=== PATIENT | female | born 1965 | race Caucasian/White ===

== ENCOUNTER 2018-06-10 06:17 | Day surgery (SDC) | payer OTHER ==
[~2018-06-10 06:17] MED LIST: CEFAZOLIN 2 GM/50 ML (PMX) 50 ML IVPB; SOD CHLORIDE 0.9% 1,000 ML IV
[2018-06-10] MEDS ORDERED: BUPIVACAINE 0.25% (MPF) 30 ML INJ (06:38)
[2018-06-10] MEDS ORDERED: FENTAnyl 50 MCG/ML VIAL (10:43)
[2018-06-10] MEDS ORDERED: ONDANSETRON 4 MG INJ (10:43)
[2018-06-10] MEDS ORDERED: MIDAZOLAM 1 MG/ML 2 ML INJ (10:43)
[2018-06-10] MEDS ORDERED: PROPOFOL 20 ML (10:43)
[2018-06-10] MEDS ORDERED: METOCLOPRAMIDE 10 MG INJ (10:43)
[2018-06-10] MEDS ORDERED: CEFAZOLIN 1 GM INJ (10:43)
[2018-06-10] MEDS ORDERED: OXYCODONE/ACETAMINOPHEN (5/325) TAB PO (11:30)
[2018-06-10] MEDS ORDERED: DIPHENHYDRAMINE 50 MG INJ IV (11:30)
[2018-06-10] MEDS ORDERED: MEPERIDINE 25 MG INJ IV (11:30)
[2018-06-10] MEDS ORDERED: ONDANSETRON 4 MG INJ IV (11:30)
[2018-06-10] MEDS ORDERED: HYDROmorphONE 1 MG/5 ML IV SYRINGE IV ×3 (11:30)
[2018-06-10] MEDS: BUPIVACAINE 0.25% (MPF) 30 ML INJ INJ ×2 (11:31)
[2018-06-10] MEDS: hydrALAzine 20 MG INJ IV (11:58)
[2018-06-10] MEDS ORDERED: HYDROCODONE/APAP (5/325) TAB PO (12:00)
[2018-06-10] MEDS: INSULIN REGULAR, HUMAN 100 UNIT/1 ML 3ML VIAL SC (13:13)
== END 2018-06-10 14:13 | disposition home or self-care (01) ==
LOC: SDS 06:17
DX: D24.2 Benign neoplasm of left breast (principal); N60.12 Diffuse cystic mastopathy of left breast; I10 Essential (primary) hypertension; E11.9 Type 2 diabetes mellitus without complications; E66.01 Morbid (severe) obesity due to excess calories; Z68.42 Body mass index [BMI] 45.0-49.9, adult
CPT/HCPCS: 14001; 82962; 84703; 88307